=== PATIENT | male | born 1965 | race Caucasian/White ===

== ENCOUNTER 2019-11-22 19:30 | Emergency (ER) | payer BC ==
[2019-11-22] MEDS ORDERED: Lidocaine 1% 30 ML SDV INJECT ONE (19:37)
[2019-11-22] MEDS ORDERED: Take Home: Acetaminophen/HYDROcodone 325-5 MG, 5 Tab Pack PO ONE (20:06)
--- NOTE | 2019-11-22 22:31 | EDM.PDOC ---
ED HPI GENERAL MEDICAL PROBLEM - General Chief Complaint: Skin Complaint Stated Complaint: skin problem Time Seen by Provider: 11/22/19 19:30 Source of Information: Reports: Patient History Limitations: Reports: No Limitations - History of Present Illness INITIAL COMMENTS - FREE TEXT/NARRATIVE: Pt. sustained a partial avulsion/laceration to L index finger caused by a circular saw. Pt. tetanus was updated in 2016. Denies any injury other than to the tip of the L index finger. Onset: Today Location: Reports: Upper Extremity, Left Left Finger-Index Pain Score (Numeric/FACES): 5 - Related Data Allergies Allergy/AdvReac Type Severity Reaction Status Date / Time No Known Allergies Allergy Verified 11/22/19 19:33 Home Meds: Home Meds . [No Known Home Meds] 01/19/18 [History] Past Medical History - Past Health History Medical/Surgical History: Denies Medical/Surgical History Social & Family History - Tobacco Use Smoking Status *Q: Never Smoker ED ROS GENERAL - Review of Systems Review Of Systems: See Below Constitutional: Reports: No Symptoms HEENT: Reports: No Symptoms Respiratory: Reports: No Symptoms Cardiovascular: Reports: No Symptoms Endocrine: Reports: No Symptoms GI/Abdominal: Reports: No Symptoms : Reports: No Symptoms Musculoskeletal: Reports: Other (L index finger pain) Skin: Reports: No Symptoms Neurological: Reports: No Symptoms Psychiatric: Reports: No Symptoms Hematologic/Lymphatic: Reports: No Symptoms Immunologic: Reports: No Symptoms ED EXAM, SKIN/RASH Exam: See Below Extremities: Other (partial avulsion to soft tissue of L index finger. It does not extend into the bone. Nail intact. There is an approx. 1 cm piece of devitalized tissue that is barely attached. There is also an area of abrasion/laceration adjacent, also measuring about 1 cm in circumference. ) ED SKIN PROCEDURES - Laceration/Wound Repair Left Digit - 2nd (Index) Appearance: Subcutaneous Anesthetic Type: Local Local Anesthesia - Lidocaine (Xylocaine): 1% Plain Local Anesthetic Volume: 4cc Skin Prep: Chlorhexidine (Hibiciens), Saline Saline Irrigation (cc's): 500 Exploration/Debridement/Repair: Wound Explored Progress/Comments: The area of devitalized tissue still attached to the finger was anesthetized. The finger was prepped and draped in usual sterile fashion. The area of tissue was liberated from finger, as there was no way to suture the tissue back in place (the bed of the devitilized tissue was too shallow. The finger was bleeding copiously and surgicel was used for hemostasis. Pressure dressing and tube gauze was applied to the finger. Course - Vital Signs Last Recorded V/S: Last Vital Signs Temp 36.1 C 11/22/19 19:31 Pulse 65 11/22/19 19:31 Resp 16 11/22/19 19:31 BP 162/95 H 11/22/19 19:31 Pulse Ox 98 11/22/19 19:31 - Orders/Labs/Meds Meds: Medications Discontinued Medications Generic Name Dose Route Start Last Admin Trade Name Freq PRN Reason Stop Dose Admin Hydrocodone Bitart/Acetaminophen 1 packet 11/22/19 20:06 11/22/19 20:09 Take Home: Acetam/Hydrocodon 325-5 Mg, 5 Pack PO 11/22/19 20:07 1 packet ONETIME ONE Administration Lidocaine HCl 30 ml 11/22/19 19:37 11/22/19 19:47 Xylocaine-Mpf 1% INJECT 11/22/19 19:38 30 ml ONETIME ONE Administration Departure - Departure Time of Disposition: 21:00 Disposition: Home, Self-Care 01 Clinical Impression: Avulsion, finger tip - Discharge Information Instructions: Laceration Care, Adult Forms: ED Department Discharge Additional Instructions: Keep dressing on until Saturday. Keep hand elevated above heart. The dressing that I applied is hemostatic, meaning it makes a clot. Therefore, you will probably have to soak your finger to get the dressing off. Once it is off, you can just use regular bandaids. Ibuprofen 200mg 3 tabs every 6-8 hours for pain. For severe pain (or when going to sleep) take norco 5/325mg if the ibuprofen is not helping. Sepsis Event Note (ED) - Evaluation Sepsis Screening Result: No Definite Risk - Focused Exam Vital Signs: Vital Signs Temp Pulse Resp BP Pulse Ox 11/22/19 19:31 36.1 C 65 16 162/95 H 98 - Problem List Review Problem List Initiated/Reviewed/Updated: Yes - Assessment/Plan Plan: Keep dressing on until Saturday. Keep hand elevated above heart. The dressing that I applied is hemostatic, meaning it makes a clot. Therefore, you will probably have to soak your finger to get the dressing off. Once it is off, you can just use regular bandaids. Ibuprofen 200mg 3 tabs every 6-8 hours for pain. For severe pain (or when going to sleep) take norco 5/325mg if the ibuprofen is not helping.
== END 2019-11-22 20:13 | disposition home or self-care (01) ==
LOC: VM.ED 19:30
DX: S61.201A Unspecified open wound of left index finger without damage to nail, initial encounter (principal); W31.2XXA Contact with powered woodworking and forming machines, initial encounter
CPT/HCPCS: 99282; A9270; J2001; 12001; 99283